=== PATIENT | female | born 2005 | race Caucasian/White ===

== ENCOUNTER 2025-03-28 17:53 | Emergency (ER) | payer OTHER, SELFPAY ==
--- NOTE | ~2025-03-28 | CT_ITS ---
CT abdomen pelvis w con Clinical History: abdominal pain . Comparison: None Technique: Axial images lung bases to symphysis pubis 100 mL Omnipaque 350 Coronal, sagittal reformats CT images acquired with automatic exposure control for dose reduction DLP: 293 mGy-cm Findings: Lung bases: Clear. Visualized heart and pericardium: Unremarkable. Liver: Unremarkable. Gallbladder: Unremarkable. Spleen: Unremarkable. Pancreas: Unremarkable. Adrenal glands: Unremarkable. Kidneys: Right kidney- No hydronephrosis. No renal stones. Left kidney- No hydronephrosis. No renal stones. Distal esophagus/stomach: Unremarkable. Small bowel loops: Normal caliber and wall thickness. Colon: Normal caliber and wall thickness. Normal RLQ appendix. Nodes: No enlarged nodes. Peritoneum: No ascites. No free air. Urinary bladder: Unremarkable. Uterus: Unremarkable. Adnexa: No masses. Prominent cystic focus right lower quadrant Bones: No acute bony abnormality. Soft tissues: Unremarkable. Aorta: No aneurysm or dissection. IVC: Unremarkable. Main portal vein/SMV/splenic vein: Patent. IMPRESSION: 1. No acute findings. 2. Prominent adnexal cyst right lower quadrant. Reviewed, dictated and finalized at location R. [facility] INTER[facility]
[2025-03-28 17:56] VITALS: BP 133/56; PULSE 84; RESP 16; TEMP 36.7; O2SAT 100
[2025-03-28 21:36] LABS: BEDSIDEPREGUCG Negative (Negative)
[2025-03-28 21:46] LABS: Add Urine Microscopic? YES; Appearance Urine Cloudy (Clear); Glucose Urine UA Negative (Negative); Leukocyte Esterase Ur Trace LEU/UL (Negative); Nitrate Urine Negative (Negative); Non Pathogenic Casts 0-2; Specific Grav Ur 1.019 (1.001-1.035)
[2025-03-28 23:25] LABS: Hematocrit 35.4 % (37.0-47.0); Hemoglobin 12.0 g/dL (12.0-15.0); Immature Granulocyte Percent A 0.1 % (0-0.5); Lymphocytes Absolute Auto 2.39 K/mm3 (0.9-3.2); Mean Corpuscular HGB Conc 33.9 g/dl (32-36); Mean Corpuscular Hemoglobin 30.7 pg (26-34); Mean Corpuscular Volume 90.5 fl (80-100); Nucleated Red Blood Cells Absolute Auto 0.000 K/mm3 (0.0-0.012); Nucleated Red Blood Cells Perc 0.0 % (0.0-0.2); Platelet Count Result 253 k/mm3 (150-375); Red Blood Count 3.91 M/mm3 (4.2-5.4); White Blood Count 7.0 K/mm3 (4.5-10.0)
[2025-03-28 23:28] LABS: Potassium 3.7 mmol/L (3.4-5.0); Sodium 136 mmol/L (137-145)
[2025-03-28 23:29] LABS: Alanine Aminotransferase 64 U/L (6-35); Albumin Level 4.5 g/dL (3.5-5.1); Anion Gap 8 mmol/L (4-12); Aspartate Amino Transferase 42 U/L (14-36); Bilirubin,Total 0.4 mg/dL (0.2-1.3); Blood Urea Nitrogen 14 mg/dL (7-17); Calcium 9.2 mg/dL (8.4-10.2); Carbon Dioxide 26 mmol/L (22-30); Chloride 102 mmol/L (98-107); Estimated CRCL calculation 118 ml/min; Estimated Glomerular Filt Rate > 60; Glucose 86 mg/dL (65-110); Total Protein 7.6 g/dL (6.3-8.2)
[2025-03-28 23:30] LABS: Alkaline Phosphatase 64 U/L (38-126)
[2025-03-29 00:02] VITALS: BP 130/61; PULSE 79; RESP 17; O2SAT 98
--- NOTE | 2025-03-29 02:14 | ED_ITS ---
HPI - General Adult General Chief complaint: Urogenital-Female Stated complaint: possible kidney infection' Time Seen by Provider: 03/28/25 21:48 History of Present Illness HPI narrative: 20-year-old female presenting with concerns for persistent UTI. Patient reports that she has been battling a persistent UTI since January. She has been prescribed Bactrim and nitrofurantoin with only minimal relief. Most recent symptoms began approximately 2 weeks ago accompanied by dysuria and an increase in urinary urgency/frequency. Her medical service representative prescribed her Keflex which she is due to finish tomorrow and she reports minimal improvement. Patient endorses a significant history of UTIs since she was younger. She has not seen a urologist before. Denies nausea/vomiting/diarrhea, abdominal pain, fevers/chills, or vaginal complaints. Related Data Allergies Allergy/AdvReac Type Severity Reaction Status Date / Time No Known Allergies Allergy Verified 03/28/25 17:59 Review of Systems 2 Review of Systems: All systems reviewed & are unremarkable except as noted in HPI and below Exam 2 Narrative: GENERAL: Well-appearing, well-nourished, and in no acute distress. HEAD: Normocephalic, atraumatic. EYES: PERRLA and EOMI. ENT: Nares clear, no rhinorrhea or epistaxis. Mucous membranes moist. Oropharynx without tonsillar hypertrophy exudate or other lesions. Bilateral TMs pearly moctezuma non-bulging NECK: Supple. No adenopathy or masses. No carotid bruits or JVD CHEST: Clear to auscultation. No respiratory distress. No wheezes rales or rhonchi HEART: Regular rate and rhythm. No murmur heard. Normal peripheral pulses. ABDOMEN: Soft, nondistended, normal active bowel sounds. Mild diffuse lower abdominal TTP. EXTREMITIES: Normal range of motion. No edema. SKIN: Warm, dry, no rash. NEURO: No focal deficits. Alert and oriented x3. PSYCH: Normal mood and affect Course Vital Signs Vital signs: Vital Signs Temperature 98.1 F 03/28/25 17:56 Pulse Rate 84 03/28/25 17:56 Respiratory Rate 16 03/28/25 17:56 Blood Pressure 133/56 L 03/28/25 17:56 Pulse Oximetry 100 03/28/25 17:56 Oxygen Delivery Room Air 03/28/25 17:56 Temperature 98.1 F 03/28/25 17:56 Pulse Rate 84 03/28/25 17:56 Respiratory Rate 16 03/28/25 17:56 Blood Pressure 133/56 L 03/28/25 17:56 Pulse Oximetry 100 03/28/25 17:56 Oxygen Delivery Room Air 03/28/25 17:56 Medical Decision Making MDM Narrative Medical decision making narrative: 20-year-old female presenting with concerns for a persistent UTI. Patient reports that she has been battling a persistent UTI since January. She has been prescribed Bactrim and nitrofurantoin with only minimal relief. Most recent symptoms began approximately 2 weeks ago accompanied by dysuria and an increase in urinary urgency/frequency. Her medical service representative prescribed her Keflex which she is due to finish tomorrow and she reports minimal improvement. Patient endorses a significant history of UTIs since she was younger. She has not seen a urologist before. Denies nausea/vomiting/diarrhea, abdominal pain, fevers/chills, or vaginal complaints. Upon my initial assessment patient is nontoxic and reports persistent urinary symptoms despite prior courses of Bactrim, Keflex and nitrofurantoin. Urinalysis is negative for infection however a urine culture has been sent for further evaluation. Labs WNL and vitals stable. CT demonstrates probable cystitis but no pyelonephritis or perinephric abscess. Urology referral recommended for further evaluation. Symptomatic management with hydration and phenazopyridine recommended as well as antibiotic treatment with fosfomycin. Given reasons to return. Medical Records Medical records reviewed: Yes I reviewed the external patient's medical records. Vital Signs Vital Signs: Vital Signs Temperature 98.1 F 03/28/25 17:56 Pulse Rate 84 03/28/25 17:56 Respiratory Rate 16 03/28/25 17:56 Blood Pressure 133/56 L 03/28/25 17:56 Pulse Oximetry 100 03/28/25 17:56 Oxygen Delivery Room Air 03/28/25 17:56 Temperature 98.1 F 03/28/25 17:56 Pulse Rate 84 03/28/25 17:56 Respiratory Rate 16 03/28/25 17:56 Blood Pressure 133/56 L 03/28/25 17:56 Pulse Oximetry 100 03/28/25 17:56 Oxygen Delivery Room Air 03/28/25 17:56 Lab Data Lab results reviewed: Yes I reviewed the patient's lab results. 03/28/25 23:00 03/28/25 23:00 Labs: Lab Results 03/28/25 03/28/25 03/28/25 Range/Units 21:34 21:35 23:00 WBC 7.0 (4.5-10.0) K/mm3 RBC 3.91 L (4.2-5.4) M/mm3 Hgb 12.0 (12.0-15.0) g/dL Hct 35.4 L (37.0-47.0) % MCV 90.5 (80-100) fl MCH 30.7 (26-34) pg MCHC 33.9 (32-36) g/dl RDW 11.9 (11.5-14.5) % Plt Count 253 (150-375) k/mm3 MPV 9.2 (7.4-10.4) fl Immature Gran % (Auto) 0.1 (0-0.5) % Neut % (Auto) 57.4 (45.5-73.1) % Lymph % (Auto) 34.4 (18.3-44.2) % [place] % (Auto) 5.9 (2.6-8.5) % Eos % (Auto) 1.9 (0-4.4) % Baso % (Auto) 0.3 (0.2-1.2) % Lymph # (Auto) 2.39 (0.9-3.2) K/mm3 [place] # (Auto) 0.4 (0.1-0.6) K/mm3 Eos # (Auto) 0.1 (0-0.3) K/mm3 Baso # (Auto) 0.0 (0.0-0.1) K/mm3 Abs Immat Gran (auto) 0.01 (0.00-0.031) K/mm3 Absolute Neuts (auto) 4.0 (1.3-6.7) K/mm3 Absolute Nucleated RBC 0.000 (0.0-0.012) K/mm3 Nucleated RBC % 0.0 (0.0-0.2) % Sodium 136 L (137-145) mmol/L Potassium 3.7 (3.4-5.0) mmol/L Chloride 102 (98-107) mmol/L Carbon Dioxide 26 (22-30) mmol/L Anion Gap 8 (4-12) mmol/L BUN 14 (7-17) mg/dL Creatinine 0.68 L (0.7-1.0) mg/dL Estim Creat Clear Calc 118 ml/min Estimated GFR > 60 (59 - ) Glucose 86 (65-110) mg/dL Calcium 9.2 (8.4-10.2) mg/dL Total Bilirubin 0.4 (0.2-1.3) mg/dL AST 42 H (14-36) U/L ALT 64 H (6-35) U/L Alkaline Phosphatase 64 (38-126) U/L Total Protein 7.6 (6.3-8.2) g/dL Albumin 4.5 (3.5-5.1) g/dL Urine Color Yellow (Yellow) Urine Appearance Cloudy H (Clear) Urine pH 7.0 (5.0-9.0) Ur Specific [place] 1.019 (1.001-1.035) Urine Protein Negative (Negative) mg/dL Urine Glucose (UA) Negative (Negative) mg/dL Urine Ketones Negative (Negative) mg/dL Ur Blood (Man) Negative (Negative) Urine Nitrate Negative (Negative) Urine Bilirubin Negative (Negative) Urine Urobilinogen 0.2 (<2.0) mg/dL Leukocyte Esterase Rfl Trace H (Negative) DANE/UL Urine RBC 0-2 (0-2) /hpf Urine WBC 0-5 (0-3) /hpf Ur Squamous Epith Cells Few (Few) /hpf Urine Bacteria None seen /hpf Urine Casts 0-2 POC Urine HCG, Qual Negative (Negative) Imaging Data Attestation: I personally reviewed and interpreted this imaging study as follows: Radiologist's impression: CT abdomen pelvis impression: Collapsed urinary bladder, probable cystitis. 4 cm right ovarian cyst, located deep to the rectus abdominus muscle the right lower quadrant anteriorly. No pyelonephritis or perinephric abscess. Discharge Plan Discharge Clinical Impression: Cystitis Patient Disposition: Home Condition: Stable Instructions: Antibiotic Form, Urinary Tract Infection in Women (ED) Additional Instructions: Take Pyridium with food to reduce stomach upset. Urine will turn a reddish-orange---harmless, but can stain clothing and contact lenses. Do not exceed recommended duration without further evaluation. Take antibiotic as prescribed. Return to the emergency department if you experience fever, chest pain, shortness of breath, abdominal pain with nausea and vomiting, weakness, numbness/tingling, or any other symptoms that are concerning to you. Take anti- inflammatories (Aleve, Ibuprofen, Naproxen, etc) or Tylenol as needed for pain. Follow up with urology. Follow-up with primary care doctor for any other general concerns. Patient Language: Yakut Prescriptions: New fosfomycin tromethamine 3 gram packet 3 g PO ONCE Qty: 1 0RF phenazopyridine 200 mg tablet 200 mg PO TID PRN (Reason: pain) Qty: 6 0RF Follow-up/Referrals: Jose Arora MD [Physician, Urology] PHYSICIAN,BUSINESS CENTER REPRESENTATIVE [Primary Care Provider, Internal Medicine] Stand Alone Forms: Work/School Release IP
[2025-03-29] MEDS: PHENAZOPYRIDINE HCL 100 MG TABLET 200 MG PO (02:58)
[2025-03-29 03:03] VITALS: BP 126/69; PULSE 74; RESP 18; O2SAT 99
[2025-03-29 03:30] VITALS: BP 126/69; PULSE 74; RESP 18; O2SAT 99
== END 2025-03-29 03:31 | disposition home or self-care (01) ==
PROVIDERS: Student in an Organized Health Care Education/Training Program
DX: N30.90 Cystitis, unspecified without hematuria (principal); N83.201 Unspecified ovarian cyst, right side
CPT/HCPCS: 36415; 74177; 80053; 81001; 81025; 85025; 99284; A9270; Q9967